=== PATIENT | female | born 1985 | race American Indian/Alaskan Native ===

== ENCOUNTER 2019-09-10 18:29 | Emergency (ER) | payer SELFPAY ==
[2019-09-10 20:13] VITALS: BP 118/78
--- NOTE | 2019-09-10 20:15 | Event Note ---
ED Screening Note ED Screening Note: body aches that began three days ago n/v headache rhinorrhea congestion chills no diarrhea +sick contact PMHx sjogrens syndrome allergy to iodine non smoker
--- NOTE | 2019-09-10 20:16 | Emergency Department Report ---
Chief Complaint: Upper Respiratory Infection Stated Complaint: CHEST PAIN/BODY PAIN/VOMIT Time Seen by Provider: 09/10/19 20:10 - HPI History of Present Illness: body aches that began three days ago (+)n/v (+)headache (+)rhinorrhea (+)congestion (+)chills no diarrhea, no CP, no abd pain, no SOB +sick contact PMHx sjogrens syndrome allergy to iodine non smoker vitals are normal on exam: no acute distress, non toxic appearing normal oropharynx normal TMs and canals clear nasal drainage bilaterally normal heart sounds, no gallops, rubs, or murmurs normal breath sounds bilaterally without w/r/r pt has clinical s/sx of influenza she is out of the 48 hour range for tamiflu discussed the importance of supportive care, oral rehydration, and symptomatic treatment with pt advised pt to follow up with a PCP in the next 2-3 days for reexamination pt is presenting with a non medical emergency at this time, pt has a viral illness medical screening examination performed there is no threat to life or limb at this time advised pt to please increase your fluid intake over the next several days, get plenty of rest. may alternate tylenol then ibuprofen every 4 hours as needed for a fever or body aches. may take over the counter cough medication. follow up with a primary care doctor in the next 2-3 days. return to the emergency room for any new or worsening symptoms. - Exam Vital Signs: Vital Signs 09/10/19 20:10 Temperature 98.5 F Pulse Rate 89 Respiratory 18 Rate Blood Pressure 118/78 O2 Sat by Pulse 98 Oximetry MSE screening note: Focused history and physical exam performed. ED Disposition for MSE Clinical Impression: Viral syndrome Disposition: Z-[id number] MED SCREENING EXAM-LEFT Is pt being admited?: No Does the pt Need Aspirin: No Condition: Stable Instructions: Influenza (ED), Viral Syndrome (ED) Additional Instructions: please increase your fluid intake over the next several days, get plenty of rest. may alternate tylenol then ibuprofen every 4 hours as needed for a fever or body aches. may take over the counter cough medication. follow up with a primary care doctor in the next 2-3 days. return to the emergency room for any new or worsening symptoms. Referrals: NATE CHING MD [Staff Physician] - 3-5 Days [facility] [Outside] - 3-5 Days Forms: Work/School Release Form(ED) Time of Disposition: 20:22 Print Language: VINCENTIAN
== END 2019-09-10 21:10 | disposition left against medical advice (07) ==
LOC: ED 18:29
DX: B34.9 Viral infection, unspecified (principal)
CPT/HCPCS: 99282

== ENCOUNTER 2020-12-20 13:37 | Outpatient (CLI) | payer MEDICAID ==
[2020-12-20 14:09] VITALS: BP 92/53
[2020-12-20] MEDS ORDERED: LACTATED RINGERS 500 ML IV ONE (14:09)
--- NOTE | 2020-12-20 17:16 | Ultrasound Report ---
ULTRASOUND OBSTETRIC LIMITED ULTRASOUND BIOPHYSICAL PROFILE INDICATION / CLINICAL INFORMATION: Assess well-being.. COMPARISON: None available. FINDINGS: BREATHING MOVEMENT = 2 GROSS BODY MOVEMENT = 2 TONE = 2 QUALITATIVE AMNIOTIC FLUID VOLUME = 2 TOTAL BIOPHYSICAL SCORE = 8/8 AMNIOTIC FLUID INDEX (cm) = not measured PRESENTATION: Cephalic. HEART RATE (beats per minute): 138 ADDITIONAL FINDINGS: None. IMPRESSION: 1. Biophysical Score = 8/8 Signer Name: Kirt Jiang MD Signed: 12/20/2020 5:10 PM Workstation Name: [id number]
== END 2020-12-20 15:30 | disposition home or self-care (01) ==
LOC: TRG 13:37 → APU 13:38 → TRG 15:30
PROVIDERS: ATTEND Obstetrics & Gynecology
DX: O09.893 Supervision of other high risk pregnancies, third trimester (principal); Z3A.27 27 weeks gestation of pregnancy
CPT/HCPCS: 59025; 76819